=== PATIENT | female | born 1990 | race Caucasian/White ===

== ENCOUNTER 2017-09-30 16:09 | Inpatient (IN) | payer MEDICAID, SELFPAY ==
[2017-09-30 16:28] VITALS: BMI 21.6
[2017-09-30 16:29] VITALS: BP 102/60; PULSE 100; RESP 16; TEMP 36.6
[2017-09-30 18:00] VITALS: BP 102/60; PULSE 100; RESP 16; TEMP 36.7
[2017-09-30] MEDS: Folic Acid 1 MG Tablet PO (18:14)
[2017-09-30] MEDS: Methocarbamol 750 MG Tablet PO (18:14)
[2017-09-30] MEDS: chlordiazePOXIDE 25 MG Capsule PO ×2 (18:14→22:12)
[2017-09-30] MEDS: Buprenorphine HCl 2 MG TAB.SUBL SL (18:15)
[2017-09-30 18:40] LABS: Absolute Lymphocyte Count 2.32 X10^3/ul (0.83-4.51); Absolute Neutrophil Count 2.5 X10^3/uL (2.0-7.7); Basophil# 0.05 X10^3/uL; Basophil% 0.9 % (0-1); Eosinophil# 0.15 X10^3/uL; Eosinophils% 2.7 % (0-5); Hematocrit 35.7 % (37-47); Hemoglobin 12.2 g/dl (12.0-15.0); Lymphocyte # 2.32 X10^3/ul (4.0); Mean Corp Hgb Conc 34.2 g/gl (32-36); Mean Corpuscular Hgb 30.2 pg (27.0-32.0); Mean Corpuscular Volume 88.4 fL (81-99); Monocyte# 0.67 X10^3/uL; Monocyte% 11.8 % (0-10); Neutrophil # 2.46 X10^3/uL (2.7-7.7); Neutrophil % 43.4 % (47-70); Platelet Count 251 K/mm3 (150-450); RBC Distribution Width CV 13.3 % (11.6-14.6); RBC Distribution Width SD 41.9 fl (35.1-43.9); Red Blood Count 4.04 M/mm3 (4.2-5.4); White Blood Count 5.7 K/mm3 (4.4-11.0)
[2017-09-30 18:43] LABS: POSITIVE COUNT NO; POSITIVE DIFFERENTIAL NO; POSITIVE MORPHOLOGY NO
[2017-09-30 18:57] LABS: International Normalized Ratio 1.1; Prothrombin Time (Protime)PT. 13.6 SECONDS (11.7-14.9)
[2017-09-30 19:07] LABS: Pregnancy, Serum, hCG Quali. NEGATIVE Negative (0-9 Nonpreg)
[2017-09-30 19:08] LABS: Vitamin B12 1141 pg/mL (211-911)
--- NOTE | 2017-09-30 19:33 | PCM.HP.STD ---
Problem List (1) Acute hyperactive opioid withdrawal delirium Status: Acute (2) Polysubstance (including opioids) dependence, daily use Status: Chronic (3) CHRONIC ALCOHOL USE DEPENDENCE Status: Chronic (4) Methamphetamine abuse Status: Chronic (5) Chronic hepatitis C Status: Chronic (6) Moderate protein calorie malnutrition Status: Chronic (7) Anxiety and depression Status: Chronic (8) Drug overdose, multiple drugs Status: Chronic History of Present Illness Date of Admission: 09/30/17 Chief Complaint: Polysubstance use with opioid withdrawal The patient is a 26 year old F with polysubstance use including opioids, chronic alcohol use, amphetamine was admitted through [facility] for stabilization of withdrawal symptoms. Currently she is having withdrawal symptoms including feeling cold, abdominal cramps, nausea, muscle aches and pain, intense thirst and dehydration. Patient was also admitted in 2016 and 17 for medical stabilization but she relapsed afterwards. Patient also has history of weight loss, about 10 pounds in last 1 month. Patient also has for drug overdoses history requiring medical intervention. History of hepatitis on Valtrex. She denies history of infective endocarditis, significant abscess requiring I&D. test is negative. [] Past Medical History Past Medical History (Chronic Problems): Chronic Problems Polysubstance (including opioids) dependence, daily use (Chronic) CHRONIC ALCOHOL USE DEPENDENCE (Chronic) Methamphetamine abuse (Chronic) Chronic hepatitis C (Chronic) Moderate protein calorie malnutrition (Chronic) Anxiety and depression (Chronic) Drug overdose, multiple drugs (Chronic) Allergies No Known Allergies Allergy (Verified 09/30/17 16:33) Home Medications: Ambulatory Orders Medication Instructions Recorded Escitalopram Oxalate [Lexapro] 10 mg PO DAILY 09/30/17 Valacyclovir HCl [Valtrex] 500 mg PO DAILY 09/30/17 Smoking Status: Light Smoker (<10/day) - *Family History Paternal History Items: No pertinent history Review of Systems Constitutional: Reports: Chills, Malaise, Weakness, Weight Change, Fatigue. Denies: Fever HEENT: Denies: Head Aches, Sinus Congestion, Sinus Drainage Cardiovascular: Denies: Chest Pain, Palpitations Respiratory: Denies: Cough, Shortness of breath at rest, Sputum production Gastrointestinal: Denies: Abdominal Pain, Nausea, Vomiting Genitourinary: Denies: Dysuria Musculoskeletal: Reports: Leg Pain, Muscle pain. Denies: Joint Pain, Joint Tenderness Skin: Reports: Skin Changes - Middle scar lino on bilateral anti-cubital region. Denies: Rash, Wounds Neurological: Denies: Numbness, Tingling, Focal weakness Psychiatric: Denies: Anxiety, Depression, Homicidal Ideations, Suicidal Ideations Hematologic/ Lymphatic: Denies: Easy Bruising, Easy Bleeding VTE Information - Inpt Only VTE Present on Admission: No VTE Mechan Device Prophylaxis: SCD's VTE Pharm Prophylaxis ordered?: Yes Patient Problems: Active and Suspected Problems Acute hyperactive opioid withdrawal delirium (Acute) - Physical Exam General: Cooperative, Lethargic - Patient was lethargic in the room and sleeping. Probably she got buprenorphine and Librium. Afterwards she woke up and was oriented ?3, - HEENT: Atraumatic, PERRLA, EOMI, Normocephalic Oral: Dry Mucosa Neck: Supple, No JVD, Negative Carotid Bruits Lungs: Clear to auscultation, Normal air movement, No rhonchi, No wheeze, No rales Cardiovascular: Regular rate, Regular Rhythm, Normal S1, Normal S2, No murmurs Abdomen: Bowel Sounds Present, Soft, Non Tender, Non-Distended Extremities: No edema, Capillary Refill Less than 3 Seconds Skin: No rashes, No breakdown, - - Needle aceves present over bilateral antecubital region. Indurated region over right antecubital suggestive of chronic thrombophlebitis Musculoskeletal: No Tenderness to Palpation of Joints or Extremities Neurological: Cranial nerves II-XII grossly intact Psych/Mental Status: Normal Affect, Appropriate Vital Signs Temp Pulse Resp BP 98.1 F 100 16 102/60 09/30/17 18:00 09/30/17 18:00 09/30/17 18:00 09/30/17 18:00 Weight: 130 lb Body Mass Index (BMI) 21.6 Laboratory Tests Past 24 Hrs 09/30/17 09/30/17 09/30/17 18:26 18:26 18:26 WBC 5.7 RBC 4.04 L Hgb 12.2 Hct 35.7 L MCV 88.4 MCH 30.2 MCHC 34.2 RDW 13.3 RDW Differential 41.9 Plt Count 251 MPV 9.0 Immature Gran % (Auto) 0.200 Neut % (Auto) 43.4 L Lymph % (Auto) 41.0 [place] % (Auto) 11.8 H Eos % (Auto) 2.7 Baso % (Auto) 0.9 Absolute Neuts (auto) 2.5 Absolute Lymphs (auto) 2.32 Total Counted Not Reportable PT INR Sodium Pending Potassium Pending Chloride Pending Carbon Dioxide Pending Anion Gap Pending BUN Pending Creatinine Pending Est GFR (MDRD) Af Amer Pending Est GFR (MDRD) Non-Af Pending BUN/Creatinine Ratio Pending Glucose Pending Calcium Pending Magnesium Pending Total Bilirubin Pending AST Pending ALT Pending Alkaline Phosphatase Pending Total Protein Pending Albumin Pending Amylase Pending Lipase Pending Whole Bld Vitamin B1 Vitamin B12 1141 H Folate Pending Serum , Qual Ethyl Alcohol 09/30/17 09/30/17 09/30/17 18:26 18:26 18:26 WBC RBC Hgb Hct MCV MCH MCHC RDW RDW Differential Plt Count MPV Immature Gran % (Auto) Neut % (Auto) Lymph % (Auto) [place] % (Auto) Eos % (Auto) Baso % (Auto) Absolute Neuts (auto) Absolute Lymphs (auto) Total Counted PT 13.6 INR 1.1 Sodium Potassium Chloride Carbon Dioxide Anion Gap BUN Creatinine Est GFR (MDRD) Af Amer Est GFR (MDRD) Non-Af BUN/Creatinine Ratio Glucose Calcium Magnesium Total Bilirubin AST ALT Alkaline Phosphatase Total Protein Albumin Amylase Lipase Whole Bld Vitamin B1 Pending Vitamin B12 Folate Serum , Qual Ethyl Alcohol 7.0 09/30/17 18:26 WBC RBC Hgb Hct MCV MCH MCHC RDW RDW Differential Plt Count MPV Immature Gran % (Auto) Neut % (Auto) Lymph % (Auto) [place] % (Auto) Eos % (Auto) Baso % (Auto) Absolute Neuts (auto) Absolute Lymphs (auto) Total Counted PT INR Sodium Potassium Chloride Carbon Dioxide Anion Gap BUN Creatinine Est GFR (MDRD) Af Amer Est GFR (MDRD) Non-Af BUN/Creatinine Ratio Glucose Calcium Magnesium Total Bilirubin AST ALT Alkaline Phosphatase Total Protein Albumin Amylase Lipase Whole Bld Vitamin B1 Vitamin B12 Folate Serum , Qual NEGATIVE Ethyl Alcohol Assessment/Plan Active and Suspected Problems Acute hyperactive opioid withdrawal delirium (Acute) The patient is a 26 year old F with polysubstance use including opioids, chronic alcohol use, amphetamine was admitted through [facility] for stabilization of withdrawal symptoms. Currently she is having withdrawal symptoms including feeling cold, abdominal cramps, nausea, muscle aches and pain, intense thirst and dehydration. Patient was also admitted in 2016 and 17 for medical stabilization but she relapsed afterwards. Patient uses about half gram of heroin since age of 22. She also drinks 4-6 vodka twice a week. She occasionally uses Xanax. She uses methamphetamine half grams since age of 24. Patient also has history of weight loss, about 10 pounds in last 1 month. Patient also has for drug overdoses history requiring medical intervention. History of hepatitis on Valtrex. She denies history of infective endocarditis, significant abscess requiring I&D. test is negative. 1. Acute opioid withdrawal: Patient is admitted on the regular floor. On [facility] protocol for stabilization of opioid withdrawal. Labs ordered. Alcohol is 7.0. CBC within normal limit. Excellent 2. Polysubstance use and dependence (methamphetamine, occasional Xanax and marijuana): Patient was advised for quit of polysubstance illicit drugs. [facility] for making appointment for outpatient follow-up 3. Chronic alcohol use and dependence: patient was once admitted for alcohol withdrawal. She denies any history of hallucination or seizure. 4. Acute weight loss most probably due to polysubstance use and dependence: B12 is normal. Rest as mentioned above. Other medical conditions include chronic hepatitis C, herpes simplex anxiety and depression: Needs outpatient follow-up. DVT prophylaxis: Low risk; prophylaxis not indicated. Early ambulation encouraged Code Visit Inpatient E&M: 74688 Init Hosp L3
--- NOTE | 2017-09-30 19:45 | HP.PCM_ITS ---
Problem List (1) Acute hyperactive opioid withdrawal delirium Status: Acute (2) Polysubstance (including opioids) dependence, daily use Status: Chronic (3) CHRONIC ALCOHOL USE DEPENDENCE Status: Chronic (4) Methamphetamine abuse Status: Chronic (5) Chronic hepatitis C Status: Chronic (6) Moderate protein calorie malnutrition Status: Chronic (7) Anxiety and depression Status: Chronic (8) Drug overdose, multiple drugs Status: Chronic History of Present Illness Date of Admission: 09/30/17 Chief Complaint: Polysubstance use with opioid withdrawal The patient is a 26 year old F with polysubstance use including opioids, chronic alcohol use, amphetamine was admitted through [facility] for stabilization of withdrawal symptoms. Currently she is having withdrawal symptoms including feeling cold, abdominal cramps, nausea, muscle aches and pain , intense thirst and dehydration. Patient was also admitted in 2016 and 17 for medical stabilization but she relapsed afterwards. Patient also has history of weight loss, about 10 pounds in last 1 month. Patient also has for drug overdoses history requiring medical intervention. History of hepatitis on Valtrex. She denies history of infective endocarditis, significant abscess requiring I& D. test is negative. [] Past Medical History Past Medical History (Chronic Problems): Chronic Problems Polysubstance (including opioids) dependence, daily use (Chronic) CHRONIC ALCOHOL USE DEPENDENCE (Chronic) Methamphetamine abuse (Chronic) Chronic hepatitis C (Chronic) Moderate protein calorie malnutrition (Chronic) Anxiety and depression (Chronic) Drug overdose, multiple drugs (Chronic) Allergies No Known Allergies Allergy (Verified 09/30/17 16:33) Home Medications: Ambulatory Orders Medication Instructions Recorded Escitalopram Oxalate [Lexapro] 10 mg PO DAILY 09/30/17 Valacyclovir HCl [Valtrex] 500 mg PO DAILY 09/30/17 Smoking Status: Light Smoker (<10/day) - *Family History Paternal History Items: No pertinent history Review of Systems Constitutional: Reports: Chills, Malaise, Weakness, Weight Change, Fatigue. Denies: Fever HEENT: Denies: Head Aches, Sinus Congestion, Sinus Drainage Cardiovascular: Denies: Chest Pain, Palpitations Respiratory: Denies: Cough, Shortness of breath at rest, Sputum production Gastrointestinal: Denies: Abdominal Pain, Nausea, Vomiting Genitourinary: Denies: Dysuria Musculoskeletal: Reports: Leg Pain, Muscle pain. Denies: Joint Pain, Joint Tenderness Skin: Reports: Skin Changes - Middle scar lino on bilateral anti-cubital region. Denies: Rash, Wounds Neurological: Denies: Numbness, Tingling, Focal weakness Psychiatric: Denies: Anxiety, Depression, Homicidal Ideations, Suicidal Ideations Hematologic/ Lymphatic: Denies: Easy Bruising, Easy Bleeding VTE Information - Inpt Only VTE Present on Admission: No VTE Mechan Device Prophylaxis: SCD's VTE Pharm Prophylaxis ordered?: Yes Patient Problems: Active and Suspected Problems Acute hyperactive opioid withdrawal delirium (Acute) - Physical Exam General: Cooperative, Lethargic - Patient was lethargic in the room and sleeping. Probably she got buprenorphine and Librium. Afterwards she woke up and was oriented ?3, - HEENT: Atraumatic, PERRLA, EOMI, Normocephalic Oral: Dry Mucosa Neck: Supple, No JVD, Negative Carotid Bruits Lungs: Clear to auscultation, Normal air movement, No rhonchi, No wheeze, No rales Cardiovascular: Regular rate, Regular Rhythm, Normal S1, Normal S2, No murmurs Abdomen: Bowel Sounds Present, Soft, Non Tender, Non-Distended Extremities: No edema, Capillary Refill Less than 3 Seconds Skin: No rashes, No breakdown, - - Needle aceves present over bilateral antecubital region. Indurated region over right antecubital suggestive of chronic thrombophlebitis Musculoskeletal: No Tenderness to Palpation of Joints or Extremities Neurological: Cranial nerves II-XII grossly intact Psych/Mental Status: Normal Affect, Appropriate Vital Signs Temp Pulse Resp BP 98.1 F 100 16 102/60 09/30/17 18:00 09/30/17 18:00 09/30/17 18:00 09/30/17 18:00 Weight: 130 lb Body Mass Index (BMI) 21.6 Laboratory Tests Past 24 Hrs 09/30/17 09/30/17 09/30/17 18:26 18:26 18:26 WBC 5.7 RBC 4.04 L Hgb 12.2 Hct 35.7 L MCV 88.4 MCH 30.2 MCHC 34.2 RDW 13.3 RDW Differential 41.9 Plt Count 251 MPV 9.0 Immature Gran % (Auto) 0.200 Neut % (Auto) 43.4 L Lymph % (Auto) 41.0 [place] % (Auto) 11.8 H Eos % (Auto) 2.7 Baso % (Auto) 0.9 Absolute Neuts (auto) 2.5 Absolute Lymphs (auto) 2.32 Total Counted Not Reportable PT INR Sodium Pending Potassium Pending Chloride Pending Carbon Dioxide Pending Anion Gap Pending BUN Pending Creatinine Pending Est GFR (MDRD) Af Amer Pending Est GFR (MDRD) Non-Af Pending BUN/Creatinine Ratio Pending Glucose Pending Calcium Pending Magnesium Pending Total Bilirubin Pending AST Pending ALT Pending Alkaline Phosphatase Pending Total Protein Pending Albumin Pending Amylase Pending Lipase Pending Whole Bld Vitamin B1 Vitamin B12 1141 H Folate Pending Serum , Qual Ethyl Alcohol 09/30/17 09/30/17 09/30/17 18:26 18:26 18:26 WBC RBC Hgb Hct MCV MCH MCHC RDW RDW Differential Plt Count MPV Immature Gran % (Auto) Neut % (Auto) Lymph % (Auto) [place] % (Auto) Eos % (Auto) Baso % (Auto) Absolute Neuts (auto) Absolute Lymphs (auto) Total Counted PT 13.6 INR 1.1 Sodium Potassium Chloride Carbon Dioxide Anion Gap BUN Creatinine Est GFR (MDRD) Af Amer Est GFR (MDRD) Non-Af BUN/Creatinine Ratio Glucose Calcium Magnesium Total Bilirubin AST ALT Alkaline Phosphatase Total Protein Albumin Amylase Lipase Whole Bld Vitamin B1 Pending Vitamin B12 Folate Serum , Qual Ethyl Alcohol 7.0 09/30/17 18:26 WBC RBC Hgb Hct MCV MCH MCHC RDW RDW Differential Plt Count MPV Immature Gran % (Auto) Neut % (Auto) Lymph % (Auto) [place] % (Auto) Eos % (Auto) Baso % (Auto) Absolute Neuts (auto) Absolute Lymphs (auto) Total Counted PT INR Sodium Potassium Chloride Carbon Dioxide Anion Gap BUN Creatinine Est GFR (MDRD) Af Amer Est GFR (MDRD) Non-Af BUN/Creatinine Ratio Glucose Calcium Magnesium Total Bilirubin AST ALT Alkaline Phosphatase Total Protein Albumin Amylase Lipase Whole Bld Vitamin B1 Vitamin B12 Folate Serum , Qual NEGATIVE Ethyl Alcohol Assessment/Plan Active and Suspected Problems Acute hyperactive opioid withdrawal delirium (Acute) The patient is a 26 year old F with polysubstance use including opioids, chronic alcohol use, amphetamine was admitted through [facility] for stabilization of withdrawal symptoms. Currently she is having withdrawal symptoms including feeling cold, abdominal cramps, nausea, muscle aches and pain , intense thirst and dehydration. Patient was also admitted in 2016 and 17 for medical stabilization but she relapsed afterwards. Patient uses about half gram of heroin since age of 22. She also drinks 4-6 vodka twice a week. She occasionally uses Xanax. She uses methamphetamine half grams since age of 24. Patient also has history of weight loss, about 10 pounds in last 1 month. Patient also has for drug overdoses history requiring medical intervention. History of hepatitis on Valtrex. She denies history of infective endocarditis, significant abscess requiring I& D. test is negative. 1. Acute opioid withdrawal: Patient is admitted on the regular floor. On [facility] protocol for stabilization of opioid withdrawal. Labs ordered. Alcohol is 7.0. CBC within normal limit. Excellent 2. Polysubstance use and dependence (methamphetamine, occasional Xanax and marijuana): Patient was advised for quit of polysubstance illicit drugs. [facility] for making appointment for outpatient follow-up 3. Chronic alcohol use and dependence: patient was once admitted for alcohol withdrawal. She denies any history of hallucination or seizure. 4. Acute weight loss most probably due to polysubstance use and dependence: B12 is normal. Rest as mentioned above. Other medical conditions include chronic hepatitis C, herpes simplex anxiety and depression: Needs outpatient follow-up. DVT prophylaxis: Low risk; prophylaxis not indicated. Early ambulation encouraged Code Visit Inpatient E&M: [id number] Init Hosp L3
[2017-09-30 20:00] LABS: ALB/GLOB Ratio 0.9 RATIO (0.9-2.4); AST(SGOT) 69 U/L (15-37); Alanine Aminotransfer ALT/SGPT 155 U/L (13-56); Albumin, Serum 3.5 g/dL (3.2-5.0); Alkaline Phosphatase 59 U/L (45-117); Amylase 40 U/L (25-115); Anion Gap 7 (5-15); BUN 17 mg/dL (7-18); BUN/Creat Ratio 27.1 RATIO (10-20); Calcium,Total 8.4 mg/dL (8.5-10.1); Chloride 105 mmol/L (98-107); Creatinine, Serum 0.63 mg/dL (0.55-1.02); EST Glomerular Filtration Rate 122 mL/min (>60); Est Glom Filt Rate - Afr Amer 148 mL/min (>60); Estimated Creatinine Clearance 122.83 ml/min; Globulin 3.8 g/dL (2.2-4.2); Glucose 105 mg/dL (70-110); Lipase 110 U/L (73-393); Magnesium 2.2 mg/dL (1.6-2.6); Potassium 3.7 mmol/L (3.5-5.1); Protein, Total 7.3 g/dL (6.4-8.2); Sodium Level 139 mmol/L (136-145)
[2017-09-30 22:09] VITALS: BP 93/79; PULSE 83; RESP 16; TEMP 36.6
[2017-09-30] MEDS: Acyclovir 200 MG Capsule PO (22:12)
[2017-09-30] MEDS: traZODone 50 MG Tablet PO (22:12)
[2017-09-30] MEDS: Ibuprofen 600 MG Tablet PO (22:16)
[2017-10-01] VITALS (7 sets, daily range): BP systolic 77–94; BP diastolic 44–54; PULSE 73–92; RESP 12–18; TEMP 36.6–36.9
[2017-10-01 00:20] LABS: Amphetamine Urine VISTA POSITIVE (<1000 ng/mL); Barbiturate Urine VISTA NEGATIVE (< 200 ng/mL); Benzodiazepine Urine VISTA NEGATIVE (< 200 ng/mL); Cocaine Urine VISTA NEGATIVE (< 300 ng/mL); Ecstacy Urine VISTA POSITIVE (< 500 ng/mL); Methadone Urine VISTA NEGATIVE (< 300 ng/mL); PCP Urine VISTA NEGATIVE (< 25 ng/mL); THC Urine VISTA NEGATIVE (< 50 ng/mL); Vista UDS pH Range 6
[2017-10-01] MEDS: Buprenorphine HCl 2 MG TAB.SUBL SL ×3 (02:10→18:55)
[2017-10-01] MEDS: Methocarbamol 750 MG Tablet PO ×2 (02:10→22:22)
--- NOTE | 2017-10-01 07:09 | PCM.PN.HOSP ---
Patient Problems: Active and Suspected Problems Acute hyperactive opioid withdrawal delirium (Acute) Subjective: Patient with no acute events overnight per self and per nursing report. She did have sedated regimen held several times secondary to sedate status as well as low normal blood pressure. She states that her withdrawal symptoms have markedly improved since admission with only remaining complaint as muscle discomfort. Patient denies fevers, chills, nausea, emesis, abdominal pain, chest pain or dyspnea. Objective: Physical Examination: General: awake, alert, oriented x 3 and cooperative, seated upright in bed, fatigued appearance, NAD. Skin: normal color, turgor, no icterus, cyanosis. HEENT: AT/NC, EOMI, PERRLA, mildly dry MM. Lungs: CTA bilaterally, moderate effort, mild decrease BL bases, no rales, ronchi or wheezing. Heart: Regular rate and rhythm; no gallop, rub audible. Abdomen: soft, NTTP, ND, normal BS. Extremities: no cyanosis, clubbing, or edema. Neurological: patient awake, alert, oriented x 3; cognitive function intact; pupils equally reactive to light and accomodation; cranial nerves II-XII grossly normal, moving all 4 extremities, no focal deficits, strength mildly globally decreased. Psychiatric: affect appears fatigued, no acute evidence of depressive or anxiety feelings. Vitals/I&O's: Vital Signs Temp Pulse Resp BP 98 F 83 12 80/54 L 10/01/17 06:00 10/01/17 06:00 10/01/17 06:00 10/01/17 06:00 Weight: 130 lb Body Mass Index (BMI) 21.6 Intake and Output for Last 24 Hours 09/29/17 09/30/17 10/01/17 23:59 23:59 23:59 Intake Total 500 / 500 Balance 500 / 500 Laboratory Results 09/30/17 18:26: WBC 5.7, RBC 4.04 L, Hgb 12.2, Hct 35.7 L, MCV 88.4, MCH 30.2, MCHC 34.2, RDW 13.3, RDW Differential 41.9, Plt Count 251, MPV 9.0, Immature Gran % (Auto) 0.200, Neut % (Auto) 43.4 L, Lymph % (Auto) 41.0, [place] % (Auto) 11.8 H, Eos % (Auto) 2.7, Baso % (Auto) 0.9, Absolute Neuts (auto) 2.5, Absolute Lymphs (auto) 2.32, Total Counted Not Reportable 09/30/17 18:26: Sodium 139, Potassium 3.7, Chloride 105, Carbon Dioxide 27.0, Anion Gap 7, BUN 17, Creatinine 0.63, Estim Creat Clear Calc 122.83, Est GFR (MDRD) Af Amer 148, Est GFR (MDRD) Non-Af 122, BUN/Creatinine Ratio 27.1 H, Glucose 105, Calcium 8.4 L, Magnesium 2.2, Total Bilirubin 0.30, AST 69 H, ALT 155 H, Alkaline Phosphatase 59, Total Protein 7.3, Albumin 3.5, Globulin 3.8, Albumin/Globulin Ratio 0.9, Amylase 40, Lipase 110, Folate 27.70 09/30/17 18:26: Vitamin B12 1141 H 09/30/17 18:26: Whole Bld Vitamin B1 Pending 09/30/17 18:26: PT 13.6, INR 1.1 09/30/17 18:26: Ethyl Alcohol 7.0 09/30/17 18:26: Serum , Qual NEGATIVE 09/30/17 23:20: Urine Opiates Screen POSITIVE H, Urine Methadone Screen NEGATIVE, Ur Barbiturates Screen NEGATIVE, Ur Phencyclidine Scrn NEGATIVE, Ur Amphetamines Screen POSITIVE H, U Methamphetamin-MDMA POSITIVE H, U Benzodiazepines Scrn NEGATIVE, Urine Cocaine Screen NEGATIVE, U Cannabinoids Screen NEGATIVE, Ur Drug Screen Comment Current Medications Acetaminophen (Tylenol) 500 mg PO Q4H PRN PRN PRN Reason: Temp > 100.4 F Acyclovir (Zovirax) 200 mg PO BID [facility] Last Admin: 09/30/17 22:12 Dose: 200 mg Al Hydroxide/Mg Hydroxide (Mylanta Ii) 30 ml PO Q6H PRN PRN PRN Reason: dyspesia Bisacodyl (Dulcolax) 10 mg RECTAL DAILY PRN PRN Reason: Constipation Buprenorphine HCl (Buprenorphine Hcl) 4 mg SL Q8H [facility] PRN Reason: Taper Stop: 10/03/17 21:59 Last Admin: 10/01/17 02:10 Dose: 4 mg Chlordiazepoxide (Librium) 25 mg PO Q6H PRN PRN PRN Reason: Anxiety Score 2-3/3 Chlordiazepoxide (Librium) 25 mg PO Q4H [facility] Stop: 10/01/17 14:01 Last Admin: 10/01/17 06:03 Dose: Not Given Clonidine (Catapres) 0.1 mg PO Q2H PRN PRN PRN Reason: Hot/Cold Sweats or Anxiety Dicyclomine HCl (Bentyl) 20 mg PO Q6H PRN PRN PRN Reason: Abdomnial Discomfort Folic Acid (Folic Acid) 1 mg PO DAILY@0800 [facility] Last Admin: 09/30/17 18:14 Dose: 1 mg Hydroxyzine HCl (Vistaril) 50 mg IM Q6H PRN PRN PRN Reason: Breakthrough Anxiety Hydroxyzine Pamoate (Vistaril) 50 mg PO Q6H PRN PRN PRN Reason: Mild Anxiety (score 1/3) Ibuprofen (Motrin) 600 mg PO Q8H PRN PRN PRN Reason: Mild-Moderate Pain (1-5/10) Last Admin: 09/30/17 22:16 Dose: 600 mg Loperamide HCl (Imodium) 2 - 4 mg PO UD PRN PRN Reason: LOOSE STOOLS Methocarbamol (Methocarbamol) 750 mg PO Q6H PRN PRN PRN Reason: Muscle Aches Last Admin: 10/01/17 02:10 Dose: 750 mg Multivitamins/Minerals ([facility]itamin With Minerals) [facility] Nicotine (Nicoderm Cq (Pbkc)) 21 mg TRANSDERM. DAILY [facility] Nutritional Formula (Lactose Free) (Ensure Enlive) 120 ml PO 4X/DAY [facility] Last Admin: 09/30/17 22:16 Dose: 120 ml Ondansetron HCl (Zofran Odt) 4 mg PO Q6H PRN PRN PRN Reason: NAUSEA Pramipexole Dihydrochloride (Mirapex) 0.25 mg PO Q12H PRN PRN PRN Reason: Restless Legs Quetiapine Fumarate (Seroquel) 25 mg PO Q6H PRN PRN PRN Reason: Moderate Anxiety (score 2/3) Senna (Senokot) 1 tablet PO QHS PRN PRN Reason: Constipation Thiamine HCl (Vitamin B1) 100 mg PO DAILYCM [facility] Trazodone HCl (Desyrel) 50 mg PO QHS [facility] Last Admin: 09/30/17 22:12 Dose: 50 mg Assessment/Plan Active and Suspected Problems Acute hyperactive opioid withdrawal delirium (Acute) The patient is a 26 y/o F w/ PMHx: Chronic Hepatitis C, Polysubstance abuse with Opiates, Amphetamines, EtOH Abuse who presents to the [facility] on 09/30/17 w/ noted opiate withdrawal onset starting 09/30/17 following last dose 09/29/17 in addition to EtOH withdrawal onset starting 09/30/17 following last intake 09/29/17 with with abdominal pain/cramping, generalized body aches and pains, rhinorrhea, piloerection, fatigue, restless leg, sweating, tremors and diaphoresis. (1) Acute Opiate and EtOH Withdrawal: Admitted to [facility], routine labs obtained with AST/ALT 69/155, UDS w/ positive opiates, + amp, + meth, ETOH unremarkable, initiated and continued on [facility] protocol with tapering course of Subutex and tapering course of librium w/ as needed Seroquel, Librium, Sinemet, Catapres, Bentyl, Vistaril, IV fluids, IV antiemetics, Tylenol as needed for pain. Once patient clinically improved and completion of taper nearing will plan [facility] assistance for transition to next level of rehabilitation care. Will continue to hold sedative agents as needed. (2) Polysubstance Abuse, ? IVDA Hx, History of Hepatitis C, Chronic: Patient currently not candidate for hep C treatment currently as needs to be clean, sober x 6 months, documented attendance NA or AA meetings, counseling and ongoing negative drug screens. HIV, hepatitis panel to assess for co-infection pending. Encouraged PCP establishment and follow-up. (3) Tobacco Abuse: Encouraged cessation, inpatient consultation per RT, NR if desired. (4) Moderate Protein-Calorie Malnutrition: Evidenced per poor intake, weight loss, muscle and fat loss. Supplementation, MVI as noted. (5) Anxiety and Depression: Maintain on home regimen lexapro. (6) DVT Prophylaxis: SCDs, low risk, ambulation. Code Visit Inpatient E&M: 90166 Subs Hosp L2
--- NOTE | 2017-10-01 07:17 | PN_ITS ---
Patient Problems: Active and Suspected Problems Acute hyperactive opioid withdrawal delirium (Acute) Subjective: Patient with no acute events overnight per self and per nursing report. She did have sedated regimen held several times secondary to sedate status as well as low normal blood pressure. She states that her withdrawal symptoms have markedly improved since admission with only remaining complaint as muscle discomfort. Patient denies fevers, chills, nausea, emesis, abdominal pain, chest pain or dyspnea. Objective: Physical Examination: General: awake, alert, oriented x 3 and cooperative, seated upright in bed, fatigued appearance, NAD. Skin: normal color, turgor, no icterus, cyanosis. HEENT: AT/NC, EOMI, PERRLA, mildly dry MM. Lungs: CTA bilaterally, moderate effort, mild decrease BL bases, no rales, ronchi or wheezing. Heart: Regular rate and rhythm; no gallop, rub audible. Abdomen: soft, NTTP, ND, normal BS. Extremities: no cyanosis, clubbing, or edema. Neurological: patient awake, alert, oriented x 3; cognitive function intact; pupils equally reactive to light and accomodation; cranial nerves II-XII grossly normal, moving all 4 extremities, no focal deficits, strength mildly globally decreased. Psychiatric: affect appears fatigued, no acute evidence of depressive or anxiety feelings. Vitals/I&O's: Vital Signs Temp Pulse Resp BP 98 F 83 12 80/54 L 10/01/17 06:00 10/01/17 06:00 10/01/17 06:00 10/01/17 06:00 Weight: 130 lb Body Mass Index (BMI) 21.6 Intake and Output for Last 24 Hours 09/29/17 09/30/17 10/01/17 23:59 23:59 23:59 Intake Total 500 / 500 Balance 500 / 500 Laboratory Results 09/30/17 18:26: WBC 5.7, RBC 4.04 L, Hgb 12.2, Hct 35.7 L, MCV 88.4, MCH 30.2, MCHC 34.2, RDW 13.3, RDW Differential 41.9, Plt Count 251, MPV 9.0, Immature Gran % (Auto) 0.200, Neut % (Auto) 43.4 L, Lymph % (Auto) 41.0, [place] % (Auto) 11.8 H, Eos % (Auto) 2.7, Baso % (Auto) 0.9, Absolute Neuts (auto) 2.5, Absolute Lymphs (auto) 2.32, Total Counted Not Reportable 09/30/17 18:26: Sodium 139, Potassium 3.7, Chloride 105, Carbon Dioxide 27.0, Anion Gap 7, BUN 17, Creatinine 0.63, Estim Creat Clear Calc 122.83, Est GFR ( MDRD) Af Amer 148, Est GFR (MDRD) Non-Af 122, BUN/Creatinine Ratio 27.1 H, Glucose 105, Calcium 8.4 L, Magnesium 2.2, Total Bilirubin 0.30, AST 69 H, ALT 155 H, Alkaline Phosphatase 59, Total Protein 7.3, Albumin 3.5, Globulin 3.8, Albumin/Globulin Ratio 0.9, Amylase 40, Lipase 110, Folate 27.70 09/30/17 18:26: Vitamin B12 1141 H 09/30/17 18:26: Whole Bld Vitamin B1 Pending 09/30/17 18:26: PT 13.6, INR 1.1 09/30/17 18:26: Ethyl Alcohol 7.0 09/30/17 18:26: Serum , Qual NEGATIVE 09/30/17 23:20: Urine Opiates Screen POSITIVE H, Urine Methadone Screen NEGATIVE , Ur Barbiturates Screen NEGATIVE, Ur Phencyclidine Scrn NEGATIVE, Ur Amphetamines Screen POSITIVE H, U Methamphetamin-MDMA POSITIVE H, U Benzodiazepines Scrn NEGATIVE, Urine Cocaine Screen NEGATIVE, U Cannabinoids Screen NEGATIVE, Ur Drug Screen Comment Current Medications Acetaminophen (Tylenol) 500 mg PO Q4H PRN PRN PRN Reason: Temp > 100.4 F Acyclovir (Zovirax) 200 mg PO BID [facility] Last Admin: 09/30/17 22:12 Dose: 200 mg Al Hydroxide/Mg Hydroxide (Mylanta Ii) 30 ml PO Q6H PRN PRN PRN Reason: dyspesia Bisacodyl (Dulcolax) 10 mg RECTAL DAILY PRN PRN Reason: Constipation Buprenorphine HCl (Buprenorphine Hcl) 4 mg SL Q8H [facility] PRN Reason: Taper Stop: 10/03/17 21:59 Last Admin: 10/01/17 02:10 Dose: 4 mg Chlordiazepoxide (Librium) 25 mg PO Q6H PRN PRN PRN Reason: Anxiety Score 2-3/3 Chlordiazepoxide (Librium) 25 mg PO Q4H [facility] Stop: 10/01/17 14:01 Last Admin: 10/01/17 06:03 Dose: Not Given Clonidine (Catapres) 0.1 mg PO Q2H PRN PRN PRN Reason: Hot/Cold Sweats or Anxiety Dicyclomine HCl (Bentyl) 20 mg PO Q6H PRN PRN PRN Reason: Abdomnial Discomfort Folic Acid (Folic Acid) 1 mg PO DAILY@0800 [facility] Last Admin: 09/30/17 18:14 Dose: 1 mg Hydroxyzine HCl (Vistaril) 50 mg IM Q6H PRN PRN PRN Reason: Breakthrough Anxiety Hydroxyzine Pamoate (Vistaril) 50 mg PO Q6H PRN PRN PRN Reason: Mild Anxiety (score 1/3) Ibuprofen (Motrin) 600 mg PO Q8H PRN PRN PRN Reason: Mild-Moderate Pain (1-5/10) Last Admin: 09/30/17 22:16 Dose: 600 mg Loperamide HCl (Imodium) 2 - 4 mg PO UD PRN PRN Reason: LOOSE STOOLS Methocarbamol (Methocarbamol) 750 mg PO Q6H PRN PRN PRN Reason: Muscle Aches Last Admin: 10/01/17 02:10 Dose: 750 mg Multivitamins/Minerals (Multivitamin With Minerals) [facility] Nicotine (Nicoderm Cq (Pbkc)) 21 mg TRANSDERM. DAILY [facility] Nutritional Formula (Lactose Free) (Ensure Enlive) 120 ml PO 4X/DAY [facility] Last Admin: 09/30/17 22:16 Dose: 120 ml Ondansetron HCl (Zofran Odt) 4 mg PO Q6H PRN PRN PRN Reason: NAUSEA Pramipexole Dihydrochloride (Mirapex) 0.25 mg PO Q12H PRN PRN PRN Reason: Restless Legs Quetiapine Fumarate (Seroquel) 25 mg PO Q6H PRN PRN PRN Reason: Moderate Anxiety (score 2/3) Senna (Senokot) 1 tablet PO QHS PRN PRN Reason: Constipation Thiamine HCl (Vitamin B1) 100 mg PO DAILYCM [facility] Trazodone HCl (Desyrel) 50 mg PO QHS [facility] Last Admin: 09/30/17 22:12 Dose: 50 mg Assessment/Plan Active and Suspected Problems Acute hyperactive opioid withdrawal delirium (Acute) The patient is a 26 y/o F w/ PMHx: Chronic Hepatitis C, Polysubstance abuse with Opiates, Amphetamines, EtOH Abuse who presents to the [facility] at [facility] on 09/30/17 w/ noted opiate withdrawal onset starting 09/30/17 following last dose 09/29/17 in addition to EtOH withdrawal onset starting 09/30/17 following last intake 09/29/17 with with abdominal pain/cramping, generalized body aches and pains, rhinorrhea, piloerection, fatigue, restless leg, sweating , tremors and diaphoresis. (1) Acute Opiate and EtOH Withdrawal: Admitted to [place], routine labs obtained with AST/ALT 69/155, UDS w/ positive opiates, + amp, + meth, ETOH unremarkable, initiated and continued on [facility] service protocol with tapering course of Subutex and tapering course of librium w/ as needed Seroquel, Librium, Sinemet, Catapres, Bentyl, Vistaril, IV fluids, IV antiemetics, Tylenol as needed for pain. Once patient clinically improved and completion of taper nearing will plan [facility] assistance for transition to next level of rehabilitation care. Will continue to hold sedative agents as needed. (2) Polysubstance Abuse, ? IVDA Hx, History of Hepatitis C, Chronic: Patient currently not candidate for hep C treatment currently as needs to be clean, sober x 6 months, documented attendance NA or AA meetings, counseling and ongoing negative drug screens. HIV, hepatitis panel to assess for co-infection pending. Encouraged PCP establishment and follow-up. (3) Tobacco Abuse: Encouraged cessation, inpatient consultation per RT, NR if desired. (4) Moderate Protein-Calorie Malnutrition: Evidenced per poor intake, weight loss, muscle and fat loss. Supplementation, MVI as noted. (5) Anxiety and Depression: Maintain on home regimen lexapro. (6) DVT Prophylaxis: SCDs, low risk, ambulation. Code Visit Inpatient E&M: 98714 Subs Hosp L2
[2017-10-01] MEDS: Folic Acid 1 MG Tablet PO (08:56)
[2017-10-01] MEDS: Multivitamins,Ther W-Minerals Tablet 1 TABLET PO (08:57)
[2017-10-01] MEDS: Thiamine Hydrochloride 100 MG Tablet PO ×2 (08:57)
[2017-10-01] MEDS: Acyclovir 200 MG Capsule PO ×2 (10:08→22:22)
[2017-10-01] MEDS: Escitalopram Oxalate 10 MG Tablet PO (10:14)
--- NOTE | 2017-10-01 14:48 | CHAPLAIN ---
Type of Pastoral Visit _x__ Initial Visit ___ Follow-up Visit ___ On-call Visit ___ General Patient Visit ___ Spiritual Assessment ___ Family Conference ___ Bereavement ___ Rapid Response ___ Code Blue ___ Other (describe below) Pastoral Care Referral From _x__ Patient ___ Family ___ Nurse ___ Physician ___ Director Of Women'S Services ___ Production Assembly Operator ___ Other (describe below) Sacrament/Intervention _x__ Active listening ___ Anointing ___ Restorationist ___ Bereavement ___ Communion ___ Patti exploration ___ ___ Life review _x__ Prayer ___ Reconciliation ___ Sacrament of Sick ___ Supportive presence ___ Wedding ___ Other (describe below) Pastoral Comments
[2017-10-01] MEDS: Ondansetron ODT 4 MG Tablet PO (18:14)
[2017-10-01] MEDS: Ibuprofen 600 MG Tablet PO (22:22)
--- NOTE | 2017-10-01 22:30 | NUR.TO.PHY ---
Patient reports she does not drink alcohol daily. Also Right AC appears to now be more of an abscessed area, no redness but can palpate area.
--- NOTE | 2017-10-02 01:55 | NURSING ---
Patient and this nurse had discussion regarding Librium taper. Patient is agreeable that she does not feel any symptoms and agrees that she is sleepy and probably does not need librium. 0200 Librium held, BP remains low. She states in previous rehab she was out for days on a librium taper. Will continue to monitor for withdrawal symptoms, current score is 2. Patient has slept through night.
[2017-10-02 02:01] VITALS: BP 86/54; PULSE 89; RESP 12; TEMP 36.5
[2017-10-02] MEDS: Buprenorphine HCl 2 MG TAB.SUBL SL ×3 (02:05→21:26)
[2017-10-02 06:08] LABS: HEPATITIS B SURFACE AG Negative (Negative); Hepatitis A AB, Total Negative (Negative); Hepatitis A IgM Antibody Negative (Negative); Hepatitis B Core AB IgM Negative (Negative); Hepatitis B Core Ab Total Negative (Negative); Hepatitis C Ab >11.0 s/co ratio (0.0-0.9)
[2017-10-02] MEDS: Folic Acid 1 MG Tablet PO (07:22)
[2017-10-02] MEDS: Multivitamins,Ther W-Minerals Tablet 1 TABLET PO (07:23)
--- NOTE | 2017-10-02 07:34 | PCM.PN.HOSP ---
Patient Problems: Active and Suspected Problems Acute hyperactive opioid withdrawal delirium (Acute) Subjective: Patient with no acute events overnight per self and per nursing port aside from noted increased sedation with decline of further Librium or trazodone regimen. When he patient is much more alert and awake than day prior following hold on this regimen. Discussed component of alcohol abuse history at length and more binge with no history of withdrawal in between thus discussion to completely discontinue Librium taper. Patient denies fevers, chills, nausea, emesis, abdominal pain, chest pain or dyspnea. Notes that myalgias have significantly improved since day prior. Objective: Physical Examination: General: awake, alert, oriented x 3 and cooperative, seated upright in bed, more alert and awake this AM. Skin: normal color, turgor, no icterus, cyanosis. HEENT: AT/NC, EOMI, PERRLA, improved MMM. Lungs: CTA bilaterally, moderate effort, mild decrease BL bases, no rales, ronchi or wheezing. Heart: Regular rate and rhythm; no gallop, rub audible. Abdomen: soft, NTTP, ND, normal BS. Extremities: no cyanosis, clubbing, or edema. Neurological: patient awake, alert, oriented x 3; cognitive function intact; pupils equally reactive to light and accomodation; cranial nerves II-XII grossly normal, moving all 4 extremities, no focal deficits, strength improved, intact. Psychiatric: affect appears improved, normalized, no acute evidence of depressive or anxiety feelings. Vitals/I&O's: Vital Signs Temp Pulse Resp BP 97.7 F L 89 12 86/54 L 10/02/17 02:01 10/02/17 02:01 10/02/17 02:01 10/02/17 02:01 Weight: 130 lb Body Mass Index (BMI) 21.6 Intake and Output for Last 24 Hours 09/30/17 10/01/17 10/02/17 23:59 23:59 23:59 Intake Total 2500 / 2500 300 / 300 Balance 2500 / 2500 300 / 300 Current Medications Acetaminophen (Tylenol) 500 mg PO Q4H PRN PRN PRN Reason: Temp > 100.4 F Acyclovir (Zovirax) 200 mg PO BID [facility] Last Admin: 10/01/17 22:22 Dose: 200 mg Al Hydroxide/Mg Hydroxide (Mylanta Ii) 30 ml PO Q6H PRN PRN PRN Reason: dyspesia Bisacodyl (Dulcolax) 10 mg RECTAL DAILY PRN PRN Reason: Constipation Buprenorphine HCl (Buprenorphine Hcl) 2 mg SL Q8H [facility] PRN Reason: Taper Stop: 10/03/17 21:59 Last Admin: 10/02/17 02:05 Dose: 2 mg Chlordiazepoxide (Librium) 25 mg PO Q6H PRN PRN PRN Reason: Anxiety Score 2-3/3 Chlordiazepoxide (Librium) 50 mg PO Q8H [facility] PRN Reason: Taper Stop: 10/04/17 09:59 Last Admin: 10/02/17 02:06 Dose: Not Given Clonidine (Catapres) 0.1 mg PO Q2H PRN PRN PRN Reason: Hot/Cold Sweats or Anxiety Dicyclomine HCl (Bentyl) 20 mg PO Q6H PRN PRN PRN Reason: Abdomnial Discomfort Escitalopram Oxalate (Lexapro) 10 mg PO DAILY [facility] Last Admin: 10/01/17 10:14 Dose: 10 mg Folic Acid (Folic Acid) 1 mg PO DAILY@0800 [facility] Last Admin: 10/02/17 07:22 Dose: 1 mg Hydroxyzine HCl (Vistaril) 50 mg IM Q6H PRN PRN PRN Reason: Breakthrough Anxiety Hydroxyzine Pamoate (Vistaril) 50 mg PO Q6H PRN PRN PRN Reason: Mild Anxiety (score 1/3) Ibuprofen (Motrin) 600 mg PO Q8H PRN PRN PRN Reason: Mild-Moderate Pain (1-5/10) Last Admin: 10/01/17 22:22 Dose: 600 mg Loperamide HCl (Imodium) 2 - 4 mg PO UD PRN PRN Reason: LOOSE STOOLS Methocarbamol (Methocarbamol) 750 mg PO Q6H PRN PRN PRN Reason: Muscle Aches Last Admin: 10/01/17 22:22 Dose: 750 mg Multivitamins/Minerals (Multivitamin With Minerals) [facility] Last Admin: 10/02/17 07:23 Dose: 1 tablet Nicotine (Nicoderm Cq (Pbkc)) 21 mg TRANSDERM. DAILY [facility] Last Admin: 10/01/17 10:09 Dose: 21 mg Nutritional Formula (Lactose Free) (Ensure Enlive) 120 ml PO 4X/DAY [facility] Last Admin: 10/01/17 22:22 Dose: 120 ml Ondansetron HCl (Zofran Odt) 4 mg PO Q6H PRN PRN PRN Reason: NAUSEA Last Admin: 10/01/17 18:14 Dose: 4 mg Pramipexole Dihydrochloride (Mirapex) 0.25 mg PO Q12H PRN PRN PRN Reason: Restless Legs Quetiapine Fumarate (Seroquel) 25 mg PO Q6H PRN PRN PRN Reason: Moderate Anxiety (score 2/3) Senna (Senokot) 1 tablet PO QHS PRN PRN Reason: Constipation Thiamine HCl (Vitamin B1) 100 mg PO DAILYCM [facility] Last Admin: 10/01/17 08:57 Dose: 100 mg Trazodone HCl (Desyrel) 50 mg PO QHS [facility] Last Admin: 10/01/17 22:22 Dose: Not Given Assessment/Plan Active and Suspected Problems Acute hyperactive opioid withdrawal delirium (Acute) The patient is a 26 y/o F w/ PMHx: Chronic Hepatitis C, Polysubstance abuse with Opiates, Amphetamines, EtOH Abuse who presents to the [facility] at [facility] on 09/30/17 w/ noted opiate withdrawal onset starting 09/30/17 following last dose 09/29/17 in addition to EtOH withdrawal onset starting 09/30/17 following last intake 09/29/17 with with abdominal pain/cramping, generalized body aches and pains, rhinorrhea, piloerection, fatigue, restless leg, sweating, tremors and diaphoresis. (1) Acute Opiate and ? EtOH Withdrawal: Admitted to [place], routine labs obtained with AST/ALT 69/155 with repeat hepatic profile pending 10/02/17, UDS w/ positive opiates, + amp, + meth, ETOH unremarkable, initiated and continued on [facility] service protocol with tapering course of Subutex and tapering course of librium; however, notable sedation with dual agents and following more aggressive discussions, notes EtOH more binge, no history of withdrawal sxs in between. Will d/c librium. Will also d/c q HS trazodone. Will continue with PRN Seroquel, Librium, Sinemet, Catapres, Bentyl, Vistaril, IV fluids, IV antiemetics, Tylenol as needed for pain. Once patient clinically improved and completion of taper nearing will plan [facility] assistance for transition to next level of rehabilitation care with plan for discharge 10/03/17. (2) Polysubstance Abuse, ? IVDA Hx, History of Hepatitis C, Chronic: Patient currently not candidate for hep C treatment currently as needs to be clean, sober x 6 months, documented attendance NA or AA meetings, counseling and ongoing negative drug screens. HIV, hepatitis panel to assess for co-infection pending. Encouraged PCP establishment and follow-up. (3) Tobacco Abuse: Encouraged cessation, inpatient consultation per RT, NR if desired. (4) Moderate Protein-Calorie Malnutrition: Evidenced per poor intake, weight loss, muscle and fat loss. Supplementation, MVI as noted. (5) Anxiety and Depression: Maintain on home regimen lexapro. (6) DVT Prophylaxis: SCDs, low risk, ambulation. Code Visit Inpatient E&M: 80162 Subs Hosp L2
--- NOTE | 2017-10-02 07:39 | PN_ITS ---
Patient Problems: Active and Suspected Problems Acute hyperactive opioid withdrawal delirium (Acute) Subjective: Patient with no acute events overnight per self and per nursing port aside from noted increased sedation with decline of further Librium or trazodone regimen. When he patient is much more alert and awake than day prior following hold on this regimen. Discussed component of alcohol abuse history at length and more binge with no history of withdrawal in between thus discussion to completely discontinue Librium taper. Patient denies fevers, chills, nausea, emesis, abdominal pain, chest pain or dyspnea. Notes that myalgias have significantly improved since day prior. Objective: Physical Examination: General: awake, alert, oriented x 3 and cooperative, seated upright in bed, more alert and awake this AM. Skin: normal color, turgor, no icterus, cyanosis. HEENT: AT/NC, EOMI, PERRLA, improved MMM. Lungs: CTA bilaterally, moderate effort, mild decrease BL bases, no rales, ronchi or wheezing. Heart: Regular rate and rhythm; no gallop, rub audible. Abdomen: soft, NTTP, ND, normal BS. Extremities: no cyanosis, clubbing, or edema. Neurological: patient awake, alert, oriented x 3; cognitive function intact; pupils equally reactive to light and accomodation; cranial nerves II-XII grossly normal, moving all 4 extremities, no focal deficits, strength improved, intact. Psychiatric: affect appears improved, normalized, no acute evidence of depressive or anxiety feelings. Vitals/I&O's: Vital Signs Temp Pulse Resp BP 97.7 F L 89 12 86/54 L 10/02/17 02:01 10/02/17 02:01 10/02/17 02:01 10/02/17 02:01 Weight: 130 lb Body Mass Index (BMI) 21.6 Intake and Output for Last 24 Hours 09/30/17 10/01/17 10/02/17 23:59 23:59 23:59 Intake Total 2500 / 2500 300 / 300 Balance 2500 / 2500 300 / 300 Current Medications Acetaminophen (Tylenol) 500 mg PO Q4H PRN PRN PRN Reason: Temp > 100.4 F Acyclovir (Zovirax) 200 mg PO BID [facility] Last Admin: 10/01/17 22:22 Dose: 200 mg Al Hydroxide/Mg Hydroxide (Mylanta Ii) 30 ml PO Q6H PRN PRN PRN Reason: dyspesia Bisacodyl (Dulcolax) 10 mg RECTAL DAILY PRN PRN Reason: Constipation Buprenorphine HCl (Buprenorphine Hcl) 2 mg SL Q8H [facility] PRN Reason: Taper Stop: 10/03/17 21:59 Last Admin: 10/02/17 02:05 Dose: 2 mg Chlordiazepoxide (Librium) 25 mg PO Q6H PRN PRN PRN Reason: Anxiety Score 2-3/3 Chlordiazepoxide (Librium) 50 mg PO Q8H [facility] PRN Reason: Taper Stop: 10/04/17 09:59 Last Admin: 10/02/17 02:06 Dose: Not Given Clonidine (Catapres) 0.1 mg PO Q2H PRN PRN PRN Reason: Hot/Cold Sweats or Anxiety Dicyclomine HCl (Bentyl) 20 mg PO Q6H PRN PRN PRN Reason: Abdomnial Discomfort Escitalopram Oxalate (Lexapro) 10 mg PO DAILY [facility] Last Admin: 10/01/17 10:14 Dose: 10 mg Folic Acid (Folic Acid) 1 mg PO DAILY@0800 [facility] Last Admin: 10/02/17 07:22 Dose: 1 mg Hydroxyzine HCl (Vistaril) 50 mg IM Q6H PRN PRN PRN Reason: Breakthrough Anxiety Hydroxyzine Pamoate (Vistaril) 50 mg PO Q6H PRN PRN PRN Reason: Mild Anxiety (score 1/3) Ibuprofen (Motrin) 600 mg PO Q8H PRN PRN PRN Reason: Mild-Moderate Pain (1-5/10) Last Admin: 10/01/17 22:22 Dose: 600 mg Loperamide HCl (Imodium) 2 - 4 mg PO UD PRN PRN Reason: LOOSE STOOLS Methocarbamol (Methocarbamol) 750 mg PO Q6H PRN PRN PRN Reason: Muscle Aches Last Admin: 10/01/17 22:22 Dose: 750 mg Multivitamins/Minerals ([facility]amin With Minerals) [facility] Last Admin: 10/02/17 07:23 Dose: 1 tablet Nicotine (Nicoderm Cq (Pbkc)) 21 mg TRANSDERM. DAILY [facility] Last Admin: 10/01/17 10:09 Dose: 21 mg Nutritional Formula (Lactose Free) (Ensure Enlive) 120 ml PO 4X/DAY [facility] Last Admin: 10/01/17 22:22 Dose: 120 ml Ondansetron HCl (Zofran Odt) 4 mg PO Q6H PRN PRN PRN Reason: NAUSEA Last Admin: 10/01/17 18:14 Dose: 4 mg Pramipexole Dihydrochloride (Mirapex) 0.25 mg PO Q12H PRN PRN PRN Reason: Restless Legs Quetiapine Fumarate (Seroquel) 25 mg PO Q6H PRN PRN PRN Reason: Moderate Anxiety (score 2/3) Senna (Senokot) 1 tablet PO QHS PRN PRN Reason: Constipation Thiamine HCl (Vitamin B1) 100 mg PO DAILYCM [facility] Last Admin: 10/01/17 08:57 Dose: 100 mg Trazodone HCl (Desyrel) 50 mg PO QHS [facility] Last Admin: 10/01/17 22:22 Dose: Not Given Assessment/Plan Active and Suspected Problems Acute hyperactive opioid withdrawal delirium (Acute) The patient is a 26 y/o F w/ PMHx: Chronic Hepatitis C, Polysubstance abuse with Opiates, Amphetamines, EtOH Abuse who presents to the [facility] at [facility] on 09/30/17 w/ noted opiate withdrawal onset starting 09/30/17 following last dose 09/29/17 in addition to EtOH withdrawal onset starting 09/30/17 following last intake 09/29/17 with with abdominal pain/cramping, generalized body aches and pains, rhinorrhea, piloerection, fatigue, restless leg, sweating , tremors and diaphoresis. (1) Acute Opiate and ? EtOH Withdrawal: Admitted to [place], routine labs obtained with AST/ALT 69/155 with repeat hepatic profile pending 10/02/17, UDS w/ positive opiates, + amp, + meth, ETOH unremarkable, initiated and continued on [facility] service protocol with tapering course of Subutex and tapering course of librium; however, notable sedation with dual agents and following more aggressive discussions, notes EtOH more binge, no history of withdrawal sxs in between. Will d/c librium. Will also d/c q HS trazodone. Will continue with PRN Seroquel, Librium, Sinemet, Catapres, Bentyl, Vistaril, IV fluids, IV antiemetics, Tylenol as needed for pain. Once patient clinically improved and completion of taper nearing will plan [facility] assistance for transition to next level of rehabilitation care with plan for discharge 10/03/17. (2) Polysubstance Abuse, ? IVDA Hx, History of Hepatitis C, Chronic: Patient currently not candidate for hep C treatment currently as needs to be clean, sober x 6 months, documented attendance NA or AA meetings, counseling and ongoing negative drug screens. HIV, hepatitis panel to assess for co-infection pending. Encouraged PCP establishment and follow-up. (3) Tobacco Abuse: Encouraged cessation, inpatient consultation per RT, NR if desired. (4) Moderate Protein-Calorie Malnutrition: Evidenced per poor intake, weight loss, muscle and fat loss. Supplementation, MVI as noted. (5) Anxiety and Depression: Maintain on home regimen lexapro. (6) DVT Prophylaxis: SCDs, low risk, ambulation. Code Visit Inpatient E&M: 87580 Subs Hosp L2
[2017-10-02 08:55] LABS: AST(SGOT) 83 U/L (15-37); Alanine Aminotransfer ALT/SGPT 145 U/L (13-56); Albumin, Serum 3.2 g/dL (3.2-5.0); Alkaline Phosphatase 50 U/L (45-117); Bilirubin, Direct 0.11 mg/dL (0.00-0.30); Globulin 3.8 g/dL (2.2-4.2)
[2017-10-02 10:00] VITALS: BP 73/38; PULSE 92; RESP 16; TEMP 37
[2017-10-02 10:08] LABS: HIV - WCH Non-Reactive (Nonreactive)
[2017-10-02] MEDS: Acyclovir 200 MG Capsule PO ×2 (10:09→21:27)
[2017-10-02] MEDS: Escitalopram Oxalate 10 MG Tablet PO (10:10)
[2017-10-02 11:55] LABS: Hep B Surface Antibodies Reactive (.)
[2017-10-02 14:00] VITALS: BP 92/57; PULSE 93; RESP 16; TEMP 36.8
[2017-10-02 18:00] VITALS: BP 89/55; PULSE 73; RESP 16; TEMP 37
[2017-10-02] MEDS: Ibuprofen 600 MG Tablet PO (18:16)
[2017-10-02] MEDS: Methocarbamol 750 MG Tablet PO (18:16)
[2017-10-02 21:24] VITALS: BP 83/45; PULSE 83; RESP 16; TEMP 36.8
[2017-10-02] MEDS: Acetaminophen 500 MG Tablet PO (21:33)
[2017-10-02] MEDS: Ondansetron ODT 4 MG Tablet PO (21:34)
[2017-10-02] MEDS: Senna Tablet 1 TABLET PO (21:34)
[2017-10-02 21:36] VITALS: PULSE 83; RESP 16; O2SAT 98
[2017-10-03 05:28] VITALS: BP 83/49; PULSE 88; RESP 16; TEMP 36.8
[2017-10-03] MEDS: Methocarbamol 750 MG Tablet PO (05:32)
[2017-10-03] MEDS: Ibuprofen 600 MG Tablet PO (05:32)
--- NOTE | 2017-10-03 08:29 | PCM.DC ---
- Discharge Diagnoses Current Active Problems: Current Active and Chronic Problems Acute hyperactive opioid withdrawal delirium (Acute) Polysubstance (including opioids) dependence, daily use (Chronic) CHRONIC ALCOHOL USE DEPENDENCE (Chronic) Methamphetamine abuse (Chronic) Chronic hepatitis C (Chronic) Moderate protein calorie malnutrition (Chronic) Anxiety and depression (Chronic) Drug overdose, multiple drugs (Chronic) (1) Acute Opiate and EtOH Binge Usage, Not in Acute EtOH Withdrawal (2) Polysubstance Abuse, ? IVDA Hx, History of Hepatitis C, Chronic (3) Tobacco Abuse (4) Moderate Protein-Calorie Malnutrition (5) Anxiety and Depression You will use the following diet at home:: No restrictions Your food should be the consistency of: Regular Your liquids should be the consistency of: Regular/Thin Discharge Activity: Return to Normal Activity May resume sexual activity in: No Restrictions Weight Bearing Status: Weight bearing as tolerated Call your doctor if you observe: Fever of 101 or Higher, Inability to urinate, Inability to have a bowel movement, Shortness of breath, Dizziness, Fainting spells, Chest pain, Uncontrolled pain Instructions: ED Withdrawal Narcotic, ED Narcotic Abuse, Why Do You Smoke?, Planning to Quit Smoking, Getting Support for Quitting Smoking, Coping with Smoking Withdrawal, Understanding Alcoholism, Alcoholism: Myths and Facts, The Impact of Alcoholism Allergies/Adverse Reactions: Allergies No Known Allergies Allergy (Verified 09/30/17 16:33) Medications to take at Discharge Nicotine [Nicoderm Cq] 21 mg TRANSDERM. DAILY #14 patch 10/03/17 The following prescriptions were given: Nicotine [Nicoderm Cq] 21 mg TRANSDERM. DAILY #14 patch Please follow up with your Primary Care Physician in: Follow-up with your primary care within 3-5 days to review admission. Please Follow Up With: [facility] Protocol When: Continue with [facility] protocol upon discharge as previously arranged. Proposed Discharge Date: 10/03/17
--- NOTE | 2017-10-03 08:34 | DS.PCM_ITS ---
Discharge Date and Diagnosis Date of Admission: 09/30/17 Date of Discharge: 10/03/17 - Primary Discharge Diagnosis Active and Suspected Problems Acute hyperactive opioid withdrawal delirium (Acute) (1) Acute Opiate and EtOH Binge Usage, Not in Acute EtOH Withdrawal (2) Polysubstance Abuse, ? IVDA Hx, History of Hepatitis C, Chronic (3) Tobacco Abuse (4) Moderate Protein-Calorie Malnutrition (5) Anxiety and Depression - Secondary Discharge Diagnosis Chronic Problems Polysubstance (including opioids) dependence, daily use (Chronic) CHRONIC ALCOHOL USE DEPENDENCE (Chronic) Methamphetamine abuse (Chronic) Chronic hepatitis C (Chronic) Moderate protein calorie malnutrition (Chronic) Anxiety and depression (Chronic) Drug overdose, multiple drugs (Chronic) Hospital Course and Treatment Operations: None Procedures: None Summary of Care Provided: The patient is a 26 y/o F w/ PMHx: Chronic Hepatitis C, Polysubstance abuse with Opiates, Amphetamines, EtOH Abuse who presented to the [facility] on 09/30/17 w/ noted opiate withdrawal onset starting 09/30/17 following last dose 09/29/17 in addition to ? EtOH withdrawal onset starting 09/30/17 following last intake 09/29/17 although from history further during admission only binge usage history with regular dry periods without withdrawal sxs thus likely upon admissioon sxs primarily secondary to acute opiate withdrawal with with with abdominal pain/cramping, generalized body aches and pains, rhinorrhea , piloerection, fatigue, restless leg, sweating. Patient admitted to [facility], routine labs obtained with AST/ALT 69/155 with repeat hepatic profile similar with underlying history of chronic hepatitis C, UDS w/ positive opiates, + amp, + meth, ETOH unremarkable, initiated and continued on [facility] service protocol with tapering course of Subutex and tapering course of librium; however , notable sedation with dual agents and following more aggressive discussions, notes EtOH more binge, no history of withdrawal sxs in between thus d/c librium as well as q HS trazodone with marked improvement, less sedation with appropriate control of withdrawal sxs. Patient clinically improved and completed taper thus discharged to home in stable condition with recommended PCP follow-up to assure continued evaluations for hepatitis C treatment once appropriately clean, sober x 6 months, documented attendance NA or AA meetings, counseling and ongoing negative drug screens. HIV, hepatitis panel to assess for co-infection obtained and aside from confirmed hepatitis C, negative. Patient discharged to home in stable, improved condition. DAY OF DISCHARGE PROGRESS NOTE: Subjective: Patient without acute event overnight per self and nursing report. She notes continued improved withdrawal sxs, near resolved. Notes less sedation with hold on trazodone and librium. Patient denies fever, chills, nausea, emesis , abdominal pain, chest pain or dyspnea. Patient agreeable to discharge to home. Patient will be discharged with follow-up with primary care physician within 3-5 days in addition to continued [facility] discharge plan in place. Objective: T 98.7, heart rate 85, BP 91/51, respiratory rate 14, 100% on room air. Physical Examination: General: awake, alert, oriented x 3 and cooperative, seated upright in the bed, NAD. Skin: normal color, turgor, no icterus, cyanosis. HEENT: AT/NC, EOMI, PERRLA, MMM. Lungs: CTA bilaterally, moderate effort, mild decrease BL bases, no rales, ronchi or wheezing; Heart: Regular rate and rhythm; no gallop, rub audible. Abdomen: soft, NTTP, ND, normal BS. Extremities: no cyanosis, clubbing, or edema. Neurological: patient awake, alert, oriented x 3; cognitive function appears intact upon questioning,; pupils equally reactive to light and accomodation; cranial nerves II-XII grossly normal, moving all 4 extremities, strength appropriate. Psychiatric: affect appears normal, no acute evidence of depressive or anxiety feelings. Assessment and Plan: Please see hospital summary above. Discharge Activity: Return to Normal Activity May resume sexual activity in: No Restrictions Weight Bearing Status: Weight bearing as tolerated Call your doctor if you observe: Fever of 101 or Higher, Inability to urinate, Inability to have a bowel movement, Shortness of breath, Dizziness, Fainting spells, Chest pain, Uncontrolled pain Home Medications: Medications to take at Discharge Nicotine [Nicoderm Cq] 21 mg TRANSDERM. DAILY #14 patch 10/03/17 Following Prescrptions Were Given to Patient: Nicotine [Nicoderm Cq] 21 mg TRANSDERM. DAILY #14 patch Please follow up with your Primary Care Physician in: Follow-up with your primary care within 3-5 days to review admission. Please Follow Up With: [facility] Protocol When: Continue with [facility] protocol upon discharge as previously arranged. Patient Instructions: Understanding Alcoholism, Alcoholism: Myths and Facts, The Impact of Alcoholism, Why Do You Smoke?, Planning to Quit Smoking, Getting Support for Quitting Smoking, Coping with Smoking Withdrawal, ED Narcotic Abuse , ED Withdrawal Narcotic Disposition: Home Minutes spent on discharge:: 25 Patient Condition:: Fair Meaningful Use Info Meaningful Use Diagnoses (Choose all that apply): None applicable Code Visit Inpatient E&M: 52696 Disch Hosp
[2017-10-03] MEDS: Buprenorphine HCl 2 MG TAB.SUBL SL (09:45)
[2017-10-03] MEDS: Acyclovir 200 MG Capsule PO (09:45)
[2017-10-03] MEDS: Folic Acid 1 MG Tablet PO (09:45)
[2017-10-03] MEDS: Escitalopram Oxalate 10 MG Tablet PO (09:47)
[2017-10-03] MEDS: Multivitamins,Ther W-Minerals Tablet 1 TABLET PO (09:47)
[2017-10-03] MEDS: Thiamine Hydrochloride 100 MG Tablet PO (09:47)
[2017-10-03 09:49] VITALS: BP 91/51; PULSE 84; RESP 14; TEMP 37.1
[2017-10-03 09:53] VITALS: BP 91/51; PULSE 85; RESP 14; TEMP 37.1; O2SAT 100
== END 2017-10-03 11:07 | disposition home or self-care (01) | DRG 434 ==
PROVIDERS: Admitting Provider Internal Medicine; Visit Provider Family Medicine
DX: F11.23 Opioid dependence with withdrawal (principal); B18.2 Chronic viral hepatitis C; E44.0 Moderate protein-calorie malnutrition; E86.0 Dehydration; F41.9 Anxiety disorder, unspecified; F32.9 Major depressive disorder, single episode, unspecified; Z68.21 Body mass index [BMI] 21.0-21.9, adult; F10.20 Alcohol dependence, uncomplicated; Z72.0 Tobacco use; F19.10 Other psychoactive substance abuse, uncomplicated; F15.10 Other stimulant abuse, uncomplicated
CPT/HCPCS: 36415; 80053; 80076; 80307; 80320; 82150; 82607; 82746; 83690; 83735; 84425; 84703; 85025; 85610; 86703; 86704; 86705; 86706; 86708; 86709; 86803; 87340; 97802; G0480